=== PATIENT | female | born 2000 | race American Indian/Alaskan Native ===

== ENCOUNTER 2019-04-17 13:54 | Emergency (ER) | payer OTHER ==
--- NOTE | 2019-04-17 14:39 | EDM.PDOC ---
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 Patient believes her last normal menstrual period was around March 16 i.e. first day of her last period. She was also in December and was felt to have miscarried. Tentatively clinic today and did have a qualitative beta-hCG drawn which was positive. It's unclear for quantitative beta-hCG was drawn as well. In the urine identify that she was chlamydia positive and she was treated therefore with IM Rocephin 250 mg and 1 g of Zithromax orally which made her stomach very upset and she has vomited 2 since. Spotting per vagina is not enough to wear a pad for. Bowel function has been normal as of recent. She was having problems with constipation earlier. Patient states she did not have any pelvic examination performed. Onset: Today Onset Date: 04/17/19 Duration: Hour(s): (Spotting per vagina just started within the last 2 hours.) Quality: Reports: Other Severity: Mild (No sedation no associated lower pelvic cramping pain.) Improves with: Reports: None, Medication Context: Denies: Activity Associated Symptoms: Reports: Malaise, Nausea/Vomiting (Nausea and vomiting 2 since taking oral Zithromax 1 g by mouth for chlamydia infection.). 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 [No Known Home Meds] 04/17/19 [History] Past Medical History : 2 (Questionable in December of this year. Confirm at this time. Questionable 2 para 0.) Social & Family History - Living Situation & Occupation Living situation: Reports: Single Occupation: Unemployed ED ROS GENERAL - Review of Systems Review Of Systems: See Below Constitutional: Reports: Malaise. Denies: Fever, Chills HEENT: Reports: No Symptoms Respiratory: Reports: No Symptoms Cardiovascular: Reports: No Symptoms Endocrine: Reports: Fatigue GI/Abdominal: Reports: Abdominal Pain (Diffuse upper abdominal discomfort since taking oral Zithromax 1 g for Chlamydia infection to clinic today.), Nausea, Vomiting (Vomited twice. Mostly bilious emesis. No blood) : Reports: Frequency, Other Musculoskeletal: Reports: No Symptoms Skin: Reports: No Symptoms Neurological: Reports: No Symptoms Psychiatric: Reports: No Symptoms Hematologic/Lymphatic: Reports: No Symptoms Immunologic: Reports: No Symptoms ED EXAM - Physical Exam Exam: See Below Exam Limited By: No Limitations General Appearance: Alert, WD/WN, Anxious, Mild Distress Eye Exam: Bilateral Eye: Normal Inspection Respiratory/Chest: No Respiratory Distress, Lungs Clear, No Accessory Muscle Use , Chest Non-Tender Cardiovascular: Normal Peripheral Pulses, Regular Rate, Rhythm, No Edema, No Murmur, No Rub GI/Abdominal Exam: Normal Bowel Sounds, Soft, Tender (Mildly tender right lower quadrant with no rebound or guarding.). No: Guarding, Rigid ( No peritoneal signs), Rebound Back Exam: Normal Inspection, Full Range of Motion. No: CVA Tenderness (L), CVA Tenderness (R) Extremities: Normal Inspection, Normal Range of Motion, Non-Tender Neurological: Alert, Oriented, CN II-XII Intact, Normal Cognition, Normal Gait Psychiatric: Anxious Skin Exam: Warm, Dry, Intact, Normal Color Course - Vital Signs Last Recorded V/S: Last Vital Signs Temp 36.6 C 04/17/19 14:43 Pulse 66 04/17/19 14:43 Resp 20 04/17/19 14:43 BP 120/71 04/17/19 14:43 Pulse Ox 100 04/17/19 14:43 - Orders/Labs/Meds Orders: Active Orders 24 hr Category Date Time Status CBC WITH MANUAL DIFF [HEME] Stat Lab 04/17/19 15:06 Results COMPREHENSIVE METABOLIC PN,CMP [CHEM] Stat Lab 04/17/19 15:06 Received HCG QUANTITATIVE [CHEM] Stat Lab 04/17/19 15:06 Received TYPE AND SCREEN [BBK] Stat Lab 04/17/19 15:06 Received Dextrose 5%-0.9% NaCl [Dextrose 5%-Normal Saline] 1,000 Med 04/17/19 14:45 Active ml IV ASDIRECTED Medication Orders Dextrose/Sodium Chloride (Dextrose 5%-Normal Saline) 1,000 mls @ 999 mls/hr IV ASDIRECTED BENJAMÍN Last Admin: 04/17/19 15:06 Dose: 999 mls/hr Labs: Laboratory Tests 04/17/19 Range/Units 15:06 WBC 8.37 (3.98-10.04) K/mm3 RBC 4.35 (3.98-5.22) M/mm3 Hgb 13.0 (11.2-15.7) gm/L Hct 38.3 (34.1-44.9) % MCV 88.0 (79.4-94.8) fl MCH 29.9 (25.6-32.2) pg MCHC 33.9 (32.2-35.5) g/dl RDW Std Deviation 39.9 (36.4-46.3) fL Plt Count 269 (182-369) K/mm3 MPV 9.7 (9.4-12.3) fl Meds: Medications Generic Name Dose Route Start Last Admin Trade Name Freq PRN Reason Stop Dose Admin Dextrose/Sodium Chloride 1,000 mls @ 999 mls/hr 04/17/19 14:45 04/17/19 15:06 Dextrose 5%-Normal Saline IV 999 mls/hr ASDIRECTED BENJAMÍN Administration Discontinued Medications Generic Name Dose Route Start Last Admin Trade Name Freq PRN Reason Stop Dose Admin Metoclopramide HCl 7.5 mg 04/17/19 14:44 04/17/19 15:07 Reglan IVPUSH 04/17/19 14:45 7.5 mg ONETIME ONE Administration - Radiology Interpretation Free Text/Narrative:: 18-year-old female presents the ED was spotting per vagina that started over the last 2 hours. She was at the clinic most of the morning. They confirm that she is indeed after home tests were positive. She had a "qualitative beta-hCG which was positive for unsure if she had a quantitative and will try look into this. She was found to have be chlamydia positive and her urine and subsequently received a I'm injection of Rocephin 250 mg as well as azithromycin 1 g orally. This made her terribly nauseated with abdominal pain and she has vomited twice since that time. She remains nauseated after vomiting in the ED emergency room waiting room. Emesis is bilious. Benign abdominal examination otherwise. States the spotting is just bad enough to be present but not bad enough for a pad for. I will have a look at her cervix with a speculum and do bimanual exam. IV will be started D5 normal saline at open. Given his Reglan 7.5 mg IV to arrest vomiting. A quantitative beta-hCG and a type and screen will be ordered here. - Re-Assessments/Exams Free Text/Narrative Re-Assessment/Exam: 04/17/19 15:31 Speculum examination reveals some pinkish discharge from the cervix which is creamy white in color. The cervix itself is mildly erythematous compatible with a cervicitis. Is no blood coming from the cervical os. Uterus is nearly normal in size on bimanual exam. The quantitative beta-hCG obtained from the clinic was 91.4 dictating very early or failing . It is suggested that she come back to the clinic on Saturday next week and have a repeat quantitative beta-hCG. About half hour after taking the Zithromax tablets therefore is question whether they had time to absorb. I would suggest repeating the chlamydia in the urine in 2-3 weeks time and repeat treatment plan if needed. Departure - Departure Time of Disposition: 15:33 Disposition: Home, Self-Care 01 Condition: Fair Clinical Impression: Early stage of , Cervicitis, acute gonococcal - Discharge Information *PRESCRIPTION DRUG MONITORING PROGRAM REVIEWED*: Not Applicable *COPY OF PRESCRIPTION DRUG MONITORING REPORT IN PATIENT CASEY: Not Applicable Referrals: PCP,None [Primary Care Provider] - Forms: ED Department Discharge Additional Instructions: Evaluation the emergent today for 2 reasons. After being seen in the clinic today and having a confirmed you were also identified to have positive urine test for chlamydia and gonorrhea which are sectioned transmitted diseases. You're treated appropriately with intramuscular Rocephin 250 mg which will clear up gonorrhea but may not clear up the chlamydia. Chlamydia was treated with graft 1 g of Zithromax by mouth and unfortunately created a good deal of nausea and vomiting 2. Therefore to questionable whether you are able to absorb the Zithromax in a satisfactory amount to cure yourself of chlamydia. I would suggest repeat chlamydia testing in 2-3 weeks time by urinalysis. Arch of the spotting per vagina this is secondary to cervicitis which means inflammation of the cervix likely due to the sexual transmitted diseases I gonorrhea and chlamydia. There was no blood coming from opening of the uterus to suggest miscarriage. At this stage with a quantitative beta hCG of only 89 year works extremely early or the has already failed. You will need a repeat quantitative beta-hCG done about Saturday next week in the clinic to make sure that it is going upwards and set of downwards. If it is going down it means the has failed. If it is going up this is what we would anticipate in early . Unfortunately of the is so early that an ultrasound would be useless at this point time as you cannot identify any structures on ultrasound at this time. Just follow-up in clinic next week Saturday. - My Orders Last 24 Hours: My Active Orders 04/17/19 14:45 Dextrose 5%-0.9% NaCl [Dextrose 5%-Normal Saline] 1,000 ml IV ASDIRECTED 04/17/19 15:06 CBC WITH MANUAL DIFF [HEME] Stat COMPREHENSIVE METABOLIC PN,CMP [CHEM] Stat HCG QUANTITATIVE [CHEM] Stat TYPE AND SCREEN [BBK] Stat - Assessment/Plan Last 24 Hours: My Active Orders 04/17/19 14:45 Dextrose 5%-0.9% NaCl [Dextrose 5%-Normal Saline] 1,000 ml IV ASDIRECTED 04/17/19 15:06 CBC WITH MANUAL DIFF [HEME] Stat COMPREHENSIVE METABOLIC PN,CMP [CHEM] Stat HCG QUANTITATIVE [CHEM] Stat TYPE AND SCREEN [BBK] Stat
[2019-04-17] MEDS ORDERED: Metoclopramide 10 MG/2 ML SDV IVPUSH ONE (14:44)
[2019-04-17] MEDS ORDERED: Dextrose 5%-0.9% NaCl 1,000 ML IV SCH (14:45)
== END 2019-04-17 16:15 | disposition home or self-care (01) ==
LOC: JD.ED 13:54
DX: O98.211 Gonorrhea complicating pregnancy, first trimester (principal); A54.03 Gonococcal cervicitis, unspecified; O20.9 Hemorrhage in early pregnancy, unspecified; Z3A.00 Weeks of gestation of pregnancy not specified
CPT/HCPCS: 36415; 80053; 84702; 85007; 85027; 86850; 86900; 86901; 96361; 96374; 99284; J2765; J7042

== ENCOUNTER 2019-04-25 22:28 | Emergency (ER) | payer OTHER ==
--- NOTE | 2019-04-25 23:31 | EDM.PDOC ---
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 Tonight she apparently was going to the bathroom and she wiped and she noted blood on the tissue and she comes to the ER for evaluation. She states the blood was about the way it is when she has a menstrual period. He has had some mild cramps but no cramping now. She states she is about 5 or 6 weeks . She is a 2 para 0 abortives 1. She had a miscarriage some months ago and the baby was very early so she doesn't know how old it was when she had the last miscarriage. She denies any fever or chills she denies any other acute illnesses. She does have morning sickness from the but no other acute problems. - Related Data Allergies Allergy/AdvReac Type Severity Reaction Status Date / Time No Known Allergies Allergy Verified 04/25/19 22:37 Home Meds: Home Meds . 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 History: Social & Family History - Tobacco Use Smoking Status *Q: Former Smoker Used Tobacco, but Quit: Yes Month/Year Tobacco Last Used: 12/2018 - Caffeine Use Caffeine Use: Reports: Soda, Tea - Recreational Drug Use Recreational Drug Use: No - Living Situation & Occupation Living situation: Reports: Single Occupation: Unemployed ED ROS GENERAL - Review of Systems Review Of Systems: See Below Constitutional: Denies: Fever, Chills HEENT: Reports: No Symptoms Respiratory: Reports: No Symptoms Cardiovascular: Reports: No Symptoms Endocrine: Reports: No Symptoms GI/Abdominal: Reports: Other (Abdominal cramp) : Reports: Other (Vaginal bleeding) Musculoskeletal: Reports: No Symptoms Skin: Reports: No Symptoms Neurological: Reports: No Symptoms Psychiatric: Reports: No Symptoms Hematologic/Lymphatic: Reports: No Symptoms ED EXAM - Physical Exam Exam: See Below Exam Limited By: No Limitations General Appearance: Alert, WD/WN, No Apparent Distress Eye Exam: Bilateral Eye: Normal Inspection Ears: Normal External Exam Nose: Normal Inspection Throat/Mouth: Normal Lips, Normal Voice, No Airway Compromise Head: Normocephalic Neck: Supple Respiratory/Chest: No Respiratory Distress, Lungs Clear, Normal Breath Sounds Cardiovascular: Regular Rate, Rhythm, No Murmur GI/Abdominal Exam: Soft, Non-Tender (Female) Exam: Other (Patient is deferred the exam until after the ultrasound to see if the exam is needed) Extremities: Normal Inspection, Normal Range of Motion Neurological: Alert, Oriented Psychiatric: Depressed Mood Skin Exam: Warm, Dry Course - Vital Signs Last Recorded V/S: Last Vital Signs Temp 97.2 F 04/25/19 22:37 Pulse 79 04/25/19 22:37 Resp 18 04/25/19 22:37 BP 126/76 04/25/19 22:37 Pulse Ox 99 04/25/19 22:37 - Orders/Labs/Meds Orders: Active Orders 24 hr Category Date Time Status OB Transvaginal [US] Stat Exams 04/25/19 23:06 Taken PROGESTERONE [CHEM] Stat Lab 04/25/19 23:16 Received Labs: Laboratory Tests 04/25/19 Range/Units 23:16 HCG, Quant 8105.0 mIU/mL - Radiology Interpretation Free Text/Narrative:: Ultrasound shows a intrauterine 5 weeks 2 days with no obvious complications. It is too early to see a heartbeat. - Re-Assessments/Exams Free Text/Narrative Re-Assessment/Exam: 04/26/19 00:21 I spoke to the patient and her significant other regarding the ultrasound and the beta hCG level. She is going to follow up with her OB doctor on Saturday. The progesterone level come back later. 04/26/19 00:21 In the meantime she is to go home. Bed rest essentially or at least light activity with no straining or lifting and no sex. Departure - Departure Time of Disposition: 00:21 Disposition: Home, Self-Care 01 Condition: Good Clinical Impression: First trimester , Vaginal bleeding during - Discharge Information *PRESCRIPTION DRUG MONITORING PROGRAM REVIEWED*: Not Applicable *COPY OF PRESCRIPTION DRUG MONITORING REPORT IN PATIENT CASEY: Not Applicable Referrals: Qian Herrera MD [Physician] - Forms: ED Department Discharge Additional Instructions: Follow-up with Dr. Herrera by calling the office on Saturday for recheck, over the rest of the weekend rest with no straining, no lifting and no sex, if there is worsening of your symptoms or increased bleeding or cramps return to the ER over the weekend - My Orders Last 24 Hours: My Active Orders 04/25/19 23:06 OB Transvaginal [US] Stat 04/25/19 23:16 PROGESTERONE [CHEM] Stat - Assessment/Plan Last 24 Hours: My Active Orders 04/25/19 23:06 OB Transvaginal [US] Stat 04/25/19 23:16 PROGESTERONE [CHEM] Stat
--- NOTE | 2019-04-27 10:28 | US ---
First trimester obstetrical ultrasound: Multiple real-time images were obtained transvaginally. Comparison: No previous imaging for current . Dates: LMP: LMP given as 03/16/19, SANDRINE 12/21/19, gestational age 5 weeks 5 days Current ultrasound: SANDRINE 12/24/19, gestational age 5 weeks 2 days Single intrauterine gestation is seen. Amniotic fluid volume is normal. Yolk sac is seen without pole. This is most likely due to early gestational age. Maternal ovaries are within normal limits. Incidental small nabothian cyst is present. Measurements: Gestational sac: 0.72 cm - 5 weeks 2 days Impression: 1. Single intrauterine gestation. Yolk sac but no pole is seen. This is most likely due to early gestational age. Follow-up study could be considered in 11 days to confirm normal developing . 2. Incidental nabothian cyst. Diagnostic code #2 I agree with preliminary report from [facility], finalized on 04/26/19, 1:08 AM Central Time
== END 2019-04-26 00:35 | disposition home or self-care (01) ==
LOC: JD.ED 22:28
DX: O20.9 Hemorrhage in early pregnancy, unspecified (principal); Z3A.01 Less than 8 weeks gestation of pregnancy; Z87.891 Personal history of nicotine dependence
CPT/HCPCS: 36415; 76817; 76817-26; 84144; 84702; 99282; 99284-25

== ENCOUNTER 2019-10-15 20:27 | Emergency (ER) | payer MEDICAID, OTHER ==
--- NOTE | 2019-10-15 20:51 | EDM.PDOC ---
ED HPI GENERAL MEDICAL PROBLEM - General Chief Complaint: Respiratory Problem Stated Complaint: COUGH NAUSEA DIARRHEA Time Seen by Provider: 10/15/19 20:38 Source of Information: Reports: Patient History Limitations: Reports: No Limitations - History of Present Illness INITIAL COMMENTS - FREE TEXT/NARRATIVE: Patient's unfortunate 19-year-old female who presents emergency Department today with complaint of vomiting and diarrhea. Patient reports she is 3 weeks IUP has had vomiting and diarrhea for 2 days however she is able tolerate by mouth fluids well just not food. 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 Denies: Abdominal Pain ED EXAM, GENERAL - Physical Exam Exam: See Below Exam Limited By: No Limitations General Appearance: Alert, WD/WN, Mild Distress Neck: Normal Inspection, Supple, Non-Tender, Full Range of Motion Respiratory/Chest: No Respiratory Distress, Lungs Clear, Normal Breath Sounds, No Accessory Muscle Use, Chest Non-Tender Cardiovascular: Normal Peripheral Pulses, Regular Rate, Rhythm, No Edema, No Gallop, No JVD, No Murmur, No Rub GI/Abdominal: Other (Abdomen protuberant fundal height 2 cm superior to the umbilicus) Back Exam: Normal Inspection, Full Range of Motion, NT Extremities: Normal Inspection, Normal Range of Motion, Non-Tender, Normal Capillary Refill, No Pedal Edema Neurological: Alert, Oriented Skin Exam: Warm, Dry, No Rash Course - Vital Signs Last Recorded V/S: Last Vital Signs Temp 97.8 F 10/15/19 20:34 Pulse 102 H 10/15/19 20:34 Resp 16 10/15/19 20:34 BP 121/68 10/15/19 20:34 Pulse Ox 100 10/15/19 20:34 - Re-Assessments/Exams Free Text/Narrative Re-Assessment/Exam: 10/15/19 20:49 Sinusitis at bedside positive movement and heart rate 140 Departure - Departure Time of Disposition: 20:49 Disposition: Home, Self-Care 01 Clinical Impression: Vomiting Qualifiers: Vomiting type: unspecified Vomiting Intractability: unspecified Nausea presence : unspecified Qualified Code(s): R11.10 - Vomiting, unspecified Diarrhea Qualifiers: Diarrhea type: unspecified type Qualified Code(s): R19.7 - Diarrhea, unspecified - Discharge Information Prescriptions: Ondansetron [Zofran ODT] 4 mg PO TID PRN #8 tab.dis PRN Reason: Vomiting Forms: ED Department Discharge, ED Return to Work/School Form Additional Instructions: Home, rest, adequate fluids, return as needed for worsening condition Sepsis Event Note - Evaluation Sepsis Screening Result: No Definite Risk - Focused Exam Vital Signs: Vital Signs Temp Pulse Resp BP Pulse Ox 10/15/19 20:34 97.8 F 102 H 16 121/68 100 Date Exam was Performed: 10/15/19 Time Exam was Performed: 20:46
== END 2019-10-15 21:00 | disposition home or self-care (01) ==
LOC: JD.ED 20:27
DX: R11.10 Vomiting, unspecified (principal); R19.7 Diarrhea, unspecified
CPT/HCPCS: 99283

== ENCOUNTER 2019-12-15 05:09 | Inpatient (IN) | payer BC, MEDICAID ==
[2019-12-15] MEDS ORDERED: Terbutaline 1 MG/ML SDV SUBCUT ONE (06:50)
[2019-12-15] MEDS ORDERED: Sodium Chloride 0.9% 10 ML Syringe FLUSH PRN (07:38)
[2019-12-15] MEDS ORDERED: Metoclopramide 10 MG/2 ML SDV IVPUSH ONE (07:38)
[2019-12-15] MEDS ORDERED: Citric Acid/Sodium Citrate Solution 30 ML Cup PO ONE (07:38)
[2019-12-15] MEDS ORDERED: Oxytocin 10 Units/1 ML SDV ONE (07:44)
[2019-12-15] MEDS ORDERED: Ketorolac 30 MG/ML SDV ONE (07:44)
[2019-12-15] MEDS ORDERED: Ondansetron 4 MG/2 ML SDV ONE (07:44)
[2019-12-15] MEDS ORDERED: Lactated Ringers 4,000 ML ONE (07:44)
[2019-12-15] MEDS ORDERED: ceFAZolin 1 GM Vial ONE (07:44)
[2019-12-15] MEDS ORDERED: Morphine PF 10 MG/10 ML SDV ONE (07:45)
[2019-12-15] MEDS ORDERED: Lactated Ringers 1,000 ML IV SCH (07:45)
[2019-12-15] MEDS ORDERED: Oxytocin/Lactated Ringers 10 UNIT/1,000 ML BAG IV SCH (07:45)
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
[2019-12-15] MEDS ORDERED: ceFAZolin 2 GM in Premix Bag 1 BAG IV ONE (08:00)
[2019-12-15] MEDS ORDERED: ePHEDrine Sulfate/0.9% NaCl/Pf 25 MG/5 ML SYRINGE IV ONE (08:24)
[2019-12-15] MEDS ORDERED: Lactated Ringers 1,000 ML ONE (08:45)
--- NOTE | 2019-12-15 09:47 | PCM.OPNOTE ---
- General Post-Op/Procedure Note Date of Surgery/Procedure: 12/15/19 Operative Procedure(s): primary section Findings: Viable female, weight 3550g, 8/9 APGARS at 0831. Pre Op Diagnosis: breech Post-Op Diagnosis: same Primary Surgeon: Qian Herrera Anesthesia Provider: Tanya Polo Payroll Accounting Clerk: Speedy Adams Fluid Replacement, Intraop: 2,700 Output, Urine Amount: 125 EBL in mLs: 1,000 Complications: None Condition: Good
[2019-12-15] MEDS ORDERED: diphenhydrAMINE 50 MG/ML SDV IVPUSH PRN (10:10)
[2019-12-15] MEDS ORDERED: ePHEDrine 50 MG/ML SDV IVPUSH PRN (10:10)
[2019-12-15] MEDS ORDERED: Dextrose 5%-Lactated Ringers 1,000 ML IV SCH (10:10)
[2019-12-15] MEDS ORDERED: Naloxone 0.4 MG/ML SDV IVPUSH PRN (10:10)
[2019-12-15] MEDS: Acetaminophen/oxyCODONE 325-5 MG Tab PO PRN ×2 (16:10→20:21)
[2019-12-15] MEDS: Ketorolac 30 MG/ML SDV IVPUSH SCH ×2 (16:10→21:07)
[2019-12-16] MEDS: Ketorolac 30 MG/ML SDV IVPUSH SCH (03:00)
[2019-12-16] MEDS: Acetaminophen/oxyCODONE 325-5 MG Tab PO PRN ×5 (03:51→21:03)
--- NOTE | 2019-12-16 07:48 | PCM48HPAN ---
Post Anesthesia Note - EVALUATION WITHIN 48HRS OF ANESTHETIC Vital Signs in Normal Range: Yes Patient Participated in Evaluation: Yes Respiratory Function Stable: Yes Airway Patent: Yes Cardiovascular Function Stable: Yes Hydration Status Stable: Yes Pain Control Satisfactory: Yes Nausea and Vomiting Control Satisfactory: Yes Mental Status Recovered: Yes Vital Signs: Last Vital Signs Temp 36.8 C 12/15/19 20:09 Pulse 93 12/16/19 03:54 Resp 16 12/16/19 06:00 BP 121/65 12/16/19 03:54 Pulse Ox 99 12/16/19 06:00
--- NOTE | 2019-12-16 09:17 | PCM.PNPP ---
- General Info Date of Service: 12/16/19 Functional Status: Reports: Pain Controlled - Review of Systems General: Reports: No Symptoms HEENT: Reports: No Symptoms Pulmonary: Reports: No Symptoms Cardiovascular: Reports: No Symptoms Gastrointestinal: Reports: No Symptoms Genitourinary: Reports: No Symptoms Musculoskeletal: Reports: No Symptoms Skin: Reports: No Symptoms Neurological: Reports: No Symptoms Psychiatric: Reports: No Symptoms - General Info Date of Service: 12/16/19 - Patient Data Vital Signs - Most Recent: Last Vital Signs Temp 36.8 C 12/15/19 20:09 Pulse 93 12/16/19 03:54 Resp 16 12/16/19 06:00 BP 121/65 12/16/19 03:54 Pulse Ox 99 12/16/19 06:00 Weight - Most Recent: 94.619 kg I&O - Last 24 Hours: Intake & Output 12/15/19 12/16/19 12/16/19 22:59 06:59 14:59 Intake Total 1000 Output Total 1150 1150 Balance -150 -1150 Lab Results - Last 24 Hours: Laboratory Results - last 24 hr 12/15/19 12/16/19 Range/Units 06:05 05:30 WBC 10.15 H (3.98-10.04) K/mm3 RBC 2.51 L (3.98-5.22) M/mm3 Hgb 6.8 L* D (11.2-15.7) gm/dl Hct 22.5 L (34.1-44.9) % MCV 89.6 (79.4-94.8) fl MCH 27.1 (25.6-32.2) pg MCHC 30.2 L (32.2-35.5) g/dl RDW Std Deviation 40.7 (36.4-46.3) fL Plt Count 235 (182-369) K/mm3 MPV 10.0 (9.4-12.3) fl RPR Non-reactive (NONREACTIVE) Med Orders - Current: Current Medications Diphenhydramine HCl (Benadryl) 25 mg IVPUSH Q6H PRN PRN Reason: Itching or Nausea Last Admin: 12/15/19 12:57 Dose: 25 mg Ephedrine Sulfate (Ephedrine Sulfate) 5 mg IVPUSH SEECOMMENT PRN PRN Reason: Other Ibuprofen (Motrin) 600 mg PO Q6H PRN PRN Reason: mild pain or fever Naloxone HCl (Narcan) 0.1 mg IVPUSH SEECOMMENT PRN PRN Reason: Respiratory Depression Oxycodone/Acetaminophen (Percocet 325-5 Mg) 1 tab PO Q4H PRN PRN Reason: Pain (moderate 4-6) Last Admin: 12/15/19 20:21 Dose: 1 tab Oxycodone/Acetaminophen (Percocet 325-5 Mg) 2 tab PO Q4H PRN PRN Reason: Pain (severe 7-10) Last Admin: 12/16/19 08:13 Dose: 2 tab Discontinued Medications Cefazolin Sodium (Ancef) Confirm Administered Dose 4 gm .ROUTE .STK-MED ONE Stop: 12/15/19 07:45 Citric Acid/Sodium Citrate (Bicitra Solution) 30 ml PO ONETIME ONE Stop: 12/15/19 07:39 Last Admin: 12/15/19 07:53 Dose: 30 ml Ephedrine Sulfate (Ephedrine 25 Mg/5 Ml Syringe) Confirm Administered Dose 25 mg IV .STK-MED ONE Stop: 12/15/19 08:25 Lactated Ringer's (Ringers, Lactated) 1,000 mls @ 125 mls/hr IV ASDIRECTED [facility] Last Admin: 12/15/19 07:53 Dose: 125 mls/hr Oxytocin/Lactated Ringer's (Pitocin In Lr 10 Units/1,000 Ml) 10 unit in 1,000 mls @ 100 mls/hr IV ASDIRECTED [facility]; Protocol Cefazolin Sodium/Dextrose 2 gm (/ Premix) 50 mls @ 100 mls/hr IV ONETIME ONE Stop: 12/15/19 08:29 Lactated Ringer's (Ringers, Lactated) Confirm Administered Dose 4,000 mls @ as directed .ROUTE .STK-MED ONE Stop: 12/15/19 07:45 Lactated Ringer's (Ringers, Lactated) Confirm Administered Dose 1,000 mls @ as directed .ROUTE .STK-MED ONE Stop: 12/15/19 08:46 Dextrose/Lactated Ringer's (Dextrose 5%-Lactated Ringers) 1,000 mls @ 125 mls/ hr IV ASDIRECTED [facility] Stop: 12/15/19 18:09 Last Admin: 12/15/19 11:46 Dose: 125 mls/hr Ketorolac Tromethamine (Toradol) Confirm Administered Dose 60 mg .ROUTE .STK- MED ONE Stop: 12/15/19 07:45 Ketorolac Tromethamine (Toradol) 30 mg IVPUSH Q6H [facility] Stop: 12/16/19 03:01 Last Admin: 12/16/19 03:00 Dose: 30 mg Metoclopramide HCl (Reglan) 10 mg IVPUSH ONETIME ONE Stop: 12/15/19 07:39 Last Admin: 12/15/19 07:53 Dose: 10 mg Miscellaneous Medication (Phenylephrine 1 Mg/10 Ml-Ns) Confirm Administered Dose 1 mg IV .STK-MED ONE Stop: 12/15/19 08:35 Morphine Sulfate (Duramorph Pf) Confirm Administered Dose 20 mg .ROUTE .STK-MED ONE Stop: 12/15/19 07:46 Ondansetron HCl (Zofran) Confirm Administered Dose 8 mg .ROUTE .STK-MED ONE Stop: 12/15/19 07:45 Oxytocin (Pitocin) Confirm Administered Dose 20 unit .ROUTE .STK-MED ONE Stop: 12/15/19 07:45 Sodium Chloride (Saline Flush) 10 ml FLUSH ASDIRECTED PRN PRN Reason: Keep Vein Open Terbutaline Sulfate (Brethine) 0.25 mg SUBCUT ONETIME ONE Stop: 12/15/19 06:51 Last Admin: 12/15/19 07:02 Dose: 0.25 mg - Interaction Disposition, : [place] in Room with Family Support Person: Mother - Recovery Exam Fundal Tone: Firm Fundal Level: At Umbilicus Fundal Placement: Midline Lochia Amount: Small Lochia Color: Rubra/Red Perineum Description: Intact, Minimal Bruising/Swelling Bladder Status: Indwelling Catheter in Place - Exam General: Alert, Oriented HEENT: Pupils Equal Neck: Supple Lungs: Clear to Auscultation, Normal Respiratory Effort Cardiovascular: Regular Rate, Regular Rhythm GI/Abdominal Exam: Normal Bowel Sounds, Soft, Non-Tender, No Organomegaly, No Distention, No Abnormal Bruit, No Mass, Pelvis Stable Extremities: Normal Inspection, Normal Range of Motion, Non-Tender, No Pedal Edema, Normal Capillary Refill Skin: Warm, Dry, Intact Wound/Incisions: Dressing Dry and Intact Neurological: No New Focal Deficit Psy/Mental Status: Alert, Normal Affect, Normal Mood - Problem List Review Problem List Initiated/Reviewed/Updated: Yes - My Orders Last 24 Hours: My Active Orders 12/15/19 10:10 Communication Order [RC] PER UNIT ROUTINE Communication Order [RC] PER UNIT ROUTINE Communication Order [RC] PER UNIT ROUTINE Notify Provider Intake and Out [RC] ASDIRECTED Vital Signs [RC] Q1HR Acetaminophen/oxyCODONE [Percocet 325-5 MG] 1 tab PO Q4H PRN Acetaminophen/oxyCODONE [Percocet 325-5 MG] 2 tab PO Q4H PRN Naloxone [Narcan] 0.1 mg IVPUSH SEECOMMENT PRN diphenhydrAMINE [Benadryl] 25 mg IVPUSH Q6H PRN ePHEDrine [ePHEDrine sulfate] 5 mg IVPUSH SEECOMMENT PRN Assess Lochia [WOMSER] Per Unit Routine Assess Uterine Involution [WOMSER] Per Unit Routine Medication Administration Instruction [OM.PC] Routine 12/15/19 Lunch Regular Diet [DIET] 12/16/19 08:58 Urinary Catheter Removal [RC] Per Unit Routine 12/16/19 09:00 Ibuprofen [Motrin] 600 mg PO Q6H PRN 12/17/19 06:00 CBC WITH AUTO DIFF [HEME] Routine - Assessment Assessment:: Doing well. Tolerating anemia. Minimal pain. No other issues. Probable discharge Saturday - Plan Plan:: Term breech. Sad but accepting of primary section. RBA discussed voices understanding and wishes to proceed.
[2019-12-16] MEDS: Ibuprofen 600 MG Tab PO PRN ×2 (14:54→21:05)
[2019-12-16] MEDS ORDERED: Sodium Chloride 0.9% 500 ML IV ONE (19:00)
[2019-12-16] MEDS ORDERED: Magnesium Hydroxide 400 MG/5 ML Susp 30 ML Cup PO ONE (20:50)
[2019-12-17] MEDS: Acetaminophen/oxyCODONE 325-5 MG Tab PO PRN ×3 (01:13→10:47)
--- NOTE | 2019-12-17 10:30 | PCM.DCSUM1 ---
Discharge Summary - Hospital Course Brief History: Admitted for attempted version, not sucessful, primary section. Postoperative anemia - - tolerated will and declined blood. Diagnosis: Stroke: No - Discharge Data Discharge Date: 12/17/19 Discharge Disposition: Home, Self-Care 01 Condition: Good - Referral to Home Health Primary Care Physician: Qian Herrera MD - Patient Summary/Data Operative Procedure(s) Performed: primary section - Patient Instructions Diet: Usual Diet as Tolerated Activity: No Strenuous Activities Driving: Do Not Drive Showering/Bathing: May Shower Notify Provider of: Fever, Increased Pain, Swelling and Redness, Drainage, Nausea and/or Vomiting - Discharge Plan *PRESCRIPTION DRUG MONITORING PROGRAM REVIEWED*: No *COPY OF PRESCRIPTION DRUG MONITORING REPORT IN PATIENT CASEY: No Home Medications: Home Meds Vit No.130/Iron/Folic [ Vitamins] 1 each PO DAILY 08/15/19 [ History] Ondansetron [Zofran ODT] 4 mg PO TID PRN #8 tab.dis 10/15/19 [Rx] Patient Handouts: and Self-Care, [id number], Home Care Instructions for Mom, Eating Plan for Women - Discharge Summary/Plan Comment DC Time >30 min.: No - General Info Date of Service: 12/17/19 Functional Status: Reports: Pain Controlled - Review of Systems General: Reports: No Symptoms HEENT: Reports: No Symptoms Pulmonary: Reports: No Symptoms Cardiovascular: Reports: No Symptoms Gastrointestinal: Reports: No Symptoms Genitourinary: Reports: No Symptoms Musculoskeletal: Reports: No Symptoms Skin: Reports: No Symptoms Neurological: Reports: No Symptoms Psychiatric: Reports: No Symptoms - Patient Data Vitals - Most Recent: Last Vital Signs Temp 36.2 C 12/17/19 09:50 Pulse 94 12/17/19 09:50 Resp 16 12/17/19 09:50 BP 114/67 12/17/19 09:50 Pulse Ox 100 12/17/19 09:50 Weight - Most Recent: 94.619 kg Lab Results - Last 24 hrs: Laboratory Results - last 24 hr 12/15/19 12/16/19 12/17/19 Range/Units 06:05 19:20 06:00 WBC 10.22 H 9.32 (3.98-10.04) K/mm3 RBC 2.66 L 2.66 L (3.98-5.22) M/mm3 Hgb 7.3 L* 7.2 L* (11.2-15.7) gm/dl Hct 24.1 L 24.0 L (34.1-44.9) % MCV 90.6 90.2 (79.4-94.8) fl MCH 27.4 27.1 (25.6-32.2) pg MCHC 30.3 L 30.0 L (32.2-35.5) g/dl RDW Std Deviation 41.8 41.6 (36.4-46.3) fL Plt Count 264 271 (182-369) K/mm3 MPV 9.1 L 9.4 (9.4-12.3) fl Neut % (Auto) 67.1 64.3 (34.0-71.1) % Lymph % (Auto) 22.5 23.5 (19.3-51.7) % [place] % (Auto) 7.4 8.5 (4.7-12.5) % Eos % (Auto) 2.0 2.9 (0.7-5.8) Baso % (Auto) 0.3 0.2 (0.1-1.2) % Neut # (Auto) 6.86 H 5.99 (1.56-6.13) K/mm3 Lymph # (Auto) 2.30 2.19 (1.18-3.74) K/mm3 [place] # (Auto) 0.76 H 0.79 H (0.24-0.36) K/mm3 Eos # (Auto) 0.20 0.27 (0.04-0.36) K/mm3 Baso # (Auto) 0.03 0.02 (0.01-0.08) K/mm3 Manual Slide Review Abnormal smear Abnormal smear Blood Type O POSITIVE Gel Antibody Screen Negative Crossmatch See Detail Med Orders - Current: Current Medications Diphenhydramine HCl (Benadryl) 25 mg IVPUSH Q6H PRN PRN Reason: Itching or Nausea Last Admin: 12/15/19 12:57 Dose: 25 mg Ephedrine Sulfate (Ephedrine Sulfate) 5 mg IVPUSH SEECOMMENT PRN PRN Reason: Other Ibuprofen (Motrin) 600 mg PO Q6H PRN PRN Reason: mild pain or fever Last Admin: 12/16/19 21:05 Dose: 600 mg Naloxone HCl (Narcan) 0.1 mg IVPUSH SEECOMMENT PRN PRN Reason: Respiratory Depression Oxycodone/Acetaminophen (Percocet 325-5 Mg) 1 tab PO Q4H PRN PRN Reason: Pain (moderate 4-6) Last Admin: 12/15/19 20:21 Dose: 1 tab Oxycodone/Acetaminophen (Percocet 325-5 Mg) 2 tab PO Q4H PRN PRN Reason: Pain (severe 7-10) Last Admin: 12/17/19 06:58 Dose: 2 tab Discontinued Medications Cefazolin Sodium (Ancef) Confirm Administered Dose 4 gm .ROUTE .STK-MED ONE Stop: 12/15/19 07:45 Citric Acid/Sodium Citrate (Bicitra Solution) 30 ml PO ONETIME ONE Stop: 12/15/19 07:39 Last Admin: 12/15/19 07:53 Dose: 30 ml Ephedrine Sulfate (Ephedrine 25 Mg/5 Ml Syringe) Confirm Administered Dose 25 mg IV .STK-MED ONE Stop: 12/15/19 08:25 Lactated Ringer's (Ringers, Lactated) 1,000 mls @ 125 mls/hr IV ASDIRECTED [facility] Last Admin: 12/15/19 07:53 Dose: 125 mls/hr Oxytocin/Lactated Ringer's (Pitocin In Lr 10 Units/1,000 Ml) 10 unit in 1,000 mls @ 100 mls/hr IV ASDIRECTED [facility]; Protocol Cefazolin Sodium/Dextrose 2 gm (/ Premix) 50 mls @ 100 mls/hr IV ONETIME ONE Stop: 12/15/19 08:29 Last Admin: 12/16/19 13:19 Dose: Not Given Lactated Ringer's (Ringers, Lactated) Confirm Administered Dose 4,000 mls @ as directed .ROUTE .STK-MED ONE Stop: 12/15/19 07:45 Lactated Ringer's (Ringers, Lactated) Confirm Administered Dose 1,000 mls @ as directed .ROUTE .STK-MED ONE Stop: 12/15/19 08:46 Dextrose/Lactated Ringer's (Dextrose 5%-Lactated Ringers) 1,000 mls @ 125 mls/ hr IV ASDIRECTED [facility] Stop: 12/15/19 18:09 Last Admin: 12/15/19 11:46 Dose: 125 mls/hr Sodium Chloride (Normal Saline) 500 mls @ 100 mls/hr IV .BOLUS ONE Stop: 12/16/19 23:59 Ketorolac Tromethamine (Toradol) Confirm Administered Dose 60 mg .ROUTE .STK- MED ONE Stop: 12/15/19 07:45 Ketorolac Tromethamine (Toradol) 30 mg IVPUSH Q6H [facility] Stop: 12/16/19 03:01 Last Admin: 12/16/19 03:00 Dose: 30 mg Magnesium Hydroxide (Milk Of Magnesia) 30 ml PO ONETIME ONE Stop: 12/16/19 20:51 Last Admin: 12/16/19 21:02 Dose: 30 ml Metoclopramide HCl (Reglan) 10 mg IVPUSH ONETIME ONE Stop: 12/15/19 07:39 Last Admin: 12/15/19 07:53 Dose: 10 mg Miscellaneous Medication (Phenylephrine 1 Mg/10 Ml-Ns) Confirm Administered Dose 1 mg IV .STK-MED ONE Stop: 12/15/19 08:35 Morphine Sulfate (Duramorph Pf) Confirm Administered Dose 20 mg .ROUTE .STK-MED ONE Stop: 12/15/19 07:46 Ondansetron HCl (Zofran) Confirm Administered Dose 8 mg .ROUTE .STK-MED ONE Stop: 12/15/19 07:45 Oxytocin (Pitocin) Confirm Administered Dose 20 unit .ROUTE .STK-MED ONE Stop: 12/15/19 07:45 Sodium Chloride (Saline Flush) 10 ml FLUSH ASDIRECTED PRN PRN Reason: Keep Vein Open Terbutaline Sulfate (Brethine) 0.25 mg SUBCUT ONETIME ONE Stop: 12/15/19 06:51 Last Admin: 12/15/19 07:02 Dose: 0.25 mg - Exam General: Reports: Alert, Oriented HEENT: Reports: Pupils Equal, Pupils Reactive, EOMI, Mucous Membr. Moist/[place] Neck: Reports: Supple Lungs: Reports: Clear to Auscultation, Normal Respiratory Effort Cardiovascular: Reports: Regular Rate, Regular Rhythm GI/Abdominal Exam: Normal Bowel Sounds, Soft Rectal (Female) Exam: Normal Exam Back Exam: Reports: Normal Inspection, Full Range of Motion Extremities: Normal Inspection, Normal Range of Motion, Non-Tender, No Pedal Edema, Normal Capillary Refill Skin: Reports: Warm, Dry, Intact Wound/Incisions: Reports: Healing Well Neurological: Reports: No New Focal Deficit Psy/Mental Status: Reports: Alert, Normal Affect, Normal Mood
== END 2019-12-17 11:20 | disposition home or self-care (01) | DRG 788 ==
LOC: JD.OB 05:09 → OBSVTOIN 08:31 → JD.OB 08:31
PROVIDERS: ADMIT Obstetrics & Gynecology; ATTEND Obstetrics & Gynecology
PROC: 10D00Z1 Extraction of Products of Conception, Low, Open Approach (ICD-10-PCS; principal; 2019-12-15)
DX: O32.1XX0 Maternal care for breech presentation, not applicable or unspecified (principal); O99.02 Anemia complicating childbirth; D64.9 Anemia, unspecified; Z37.0 Single live birth; Z79.899 Other long term (current) drug therapy
CPT/HCPCS: 01961; 36415; 59025; 59412; 85025; 85027; 86592; 86850; 86900; 86901; 86922; 94762; A9270-GY; J0171; J0690; J1200; J1885; J2270; J2370; J2405; J2590; J2765; J3105; J3490; J7120; J7121

== ENCOUNTER 2020-05-14 20:29 | Emergency (ER) | payer MEDICAID ==
--- NOTE | 2020-05-14 21:19 | EDM.PDOC ---
ED HPI GENERAL MEDICAL PROBLEM - General Chief Complaint: Abdominal Pain Stated Complaint: ABDOMINAL PAIN LOWER LT SIDE Time Seen by Provider: 05/14/20 20:57 Source of Information: Reports: Patient History Limitations: Reports: No Limitations Left Abdominal Pain Score (Numeric/FACES): 10 - Related Data Allergies Allergy/AdvReac Type Severity Reaction Status Date / Time No Known Allergies Allergy Verified 05/14/20 20:38 Home Meds: Home Meds . 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: Reports: , Spontaneous Other SPECIAL DIET COOK History: Psychiatric History: Reports: ADD, Anxiety, Depression - Past Surgical History HEENT Surgical History: Reports: Oral Surgery Social & Family History - Family History Family Medical History: Noncontributory Musculoskeletal: Reports: RA - Caffeine Use Caffeine Use: Reports: Soda, Tea - Recreational Drug Use Recreational Drug Use: No - Living Situation & Occupation Living situation: Reports: Single, with Family Occupation: Unemployed ED EXAM, GI/ABD - Physical Exam Exam: See Below Exam Limited By: No Limitations General Appearance: Alert, WD/WN, No Apparent Distress (playing with her ) Eyes: Bilateral: Normal Appearance, EOMI Ears: Normal External Exam, Hearing Grossly Normal Nose: Normal Inspection Throat/Mouth: Normal Inspection, Normal Lips, Normal Voice, No Airway Compromise Head: Atraumatic, Normocephalic Neck: Normal Inspection, Full Range of Motion Respiratory/Chest: No Respiratory Distress, Lungs Clear, Normal Breath Sounds, No Accessory Muscle Use Cardiovascular: Normal Peripheral Pulses, Regular Rate, Rhythm, No Edema, No Gallop, No JVD, No Murmur, No Rub GI/Abdominal Exam: Normal Bowel Sounds, Soft, Non-Tender (minimal, if any, to the lower abdomen), No Organomegaly, No Distention, No Abnormal Bruit, No Mass, Other (Well-healed, although purplish Pfannenstiel surgical wound to the patient's lower abdomen) (Female) Exam: Deferred Rectal (Female) Exam: Deferred Back Exam: Normal Inspection, Full Range of Motion. No: CVA Tenderness (L), CVA Tenderness (R) Extremities: Normal Inspection, Normal Range of Motion, No Pedal Edema, Normal Capillary Refill Neurological: Alert, Oriented, Normal Cognition, No Motor/Sensory Deficits Psychiatric: Normal Affect Skin Exam: Warm, Dry, Intact, Normal Color, No Rash Course - Vital Signs Last Recorded V/S: Last Vital Signs Temp 36.2 C 05/14/20 20:39 Pulse 85 05/14/20 20:39 Resp 16 05/14/20 20:39 BP 123/72 05/14/20 20:39 Pulse Ox 100 05/14/20 20:39 - Re-Assessments/Exams Free Text/Narrative Re-Assessment/Exam: 05/14/20 21:13 As above, the patient has had recurrent lower abdominal pain in the area of her scar since approximately 01/27/2020, with recurrence again today. On examination, her abdomen is soft with active bowel sounds, and she has minimal tenderness to her lower abdomen. The recurrence of the patient's discomfort strongly suggest that this may be tied to the resumption of her menstrual periods. I explained to the patient that, unfortunately, I do not think there is much that we can do to help diagnose the cause of her pain, because the tools that we have in the emergency department, such as a CT scan or ultrasound, are primarily used to determine if there is a medical emergency, not to necessarily diagnose nonmedical emergencies. I recommended that instead of performing a number of random tests today, with unnecessary radiation and expense, that she follow-up with her [employer] for evaluation. The patient agreed. Departure - Departure Time of Disposition: 21:15 Disposition: Home, Self-Care 01 Condition: Good Clinical Impression: Lower abdominal pain of unknown etiology - Discharge Information *PRESCRIPTION DRUG MONITORING PROGRAM REVIEWED*: Not Applicable *COPY OF PRESCRIPTION DRUG MONITORING REPORT IN PATIENT CASEY: Not Applicable Referrals: Mellisa Wiseman MD [Primary Care Provider] - Qian Herrera MD [Physician] - Additional Instructions: You were seen in the emergency room for recurrent lower abdominal pain in the area of your scar, since approximately early January. On examination, her abdomen was found to be soft with normal bowel sounds. Based on your history and physical examination, no testing was recommended today, because it was felt highly unlikely that a significant abnormality would be found, and only incur unnecessary cost and radiation on your part. Instead, we recommend that you follow-up with your [employer], Dr. Qian Herrera, for further evaluation. If any other problems, please do not hesitate to return to the ER. Sepsis Event Note (ED) - Evaluation Sepsis Screening Result: No Definite Risk - Focused Exam Vital Signs: Vital Signs Temp Pulse Resp BP Pulse Ox 05/14/20 20:39 36.2 C 85 16 123/72 100
== END 2020-05-14 21:33 | disposition home or self-care (01) ==
LOC: JD.ED 20:29
DX: R10.30 Lower abdominal pain, unspecified (principal)
CPT/HCPCS: 99283